=== PATIENT | female | born 2000 | race Caucasian/White ===

== ENCOUNTER 2019-09-22 19:25 | Emergency (ER) | payer MEDICAID ==
[~2019-09-22] VITALS: Ht 162.6 cm; Wt 60.9 kg
[2019-09-22 19:28] VITALS: BP 103/73
[2019-09-22] MEDS ORDERED: acetaminophen 325mg tablet PO ONE (19:50)
== END 2019-09-22 20:00 | disposition home or self-care (01) ==
LOC: ER 19:25
DX: M26.621 Arthralgia of right temporomandibular joint (principal)
CPT/HCPCS: 99282